=== PATIENT | male | born 1950 ===

== ENCOUNTER 2022-01-05 09:02 | Outpatient (CLI) | payer MEDICARE ==
[2022-01-05 12:55] LABS: Chol/HDL Ratio 5.1 %
== END 2022-01-05 09:03 | disposition home or self-care (01) ==
LOC: LABHHL 09:02
PROVIDERS: ATTEND Internal Medicine
DX: E78.5 Hyperlipidemia, unspecified (principal)
CPT/HCPCS: 36415; 80061